=== PATIENT | female | born 1955 | race Caucasian/White ===

== ENCOUNTER 2019-02-18 18:19 | Emergency (ER) | payer BC ==
[2019-02-18] MEDS ORDERED: Aspirin 81 MG Tab.EC PO ONE (18:38)
[2019-02-18] MEDS ORDERED: Aspirin 81 MG Tab.Chew PO ONE ×2 (18:38→19:04)
--- NOTE | 2019-02-18 18:46 | EDM.PDOC ---
ED HPI GENERAL MEDICAL PROBLEM - General Stated Complaint: CHEST PRESSURE Time Seen by Provider: 02/18/19 18:19 Source of Information: Reports: Patient, Family History Limitations: Reports: No Limitations - History of Present Illness INITIAL COMMENTS - FREE TEXT/NARRATIVE: 63 y.o.w.f with CAD risk factors-hypercholesterolemia, HTN and NIDDM, came to [facility] ed because of mid upper chest pain since 8 am. Pt had similar episodes in the disant past. At the time, the pain subsided after she took a Prilosec. However, this morning the pain did not subside, which prompted her to come to the ED this PM. As she arrived in the ED her CP was rated 2/10, non radiating, SS mid upper chest. She took ASA 81 mg this am. She received another 3X 81 mg of ASA. in the ED. Her CP subsided spontaneously before any lab tests were done. her ECG showed NS without any acute ST/T wave changes. Pt did not have excessive sweating, no Dizziness or lightheadedness. No N/V or any other acute medical issues. 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, NSAIDS Midsternal chest, throat & bilat ears Pain Score (Numeric/FACES): 4 - Related Data Allergies Allergy/AdvReac Type Severity Reaction Status Date / Time Penicillins Allergy Unknown UNKNOWN Verified 02/18/19 18:46 Home Meds: Home Meds Acetaminophen [Non-Aspirin Extra Strength] 500 mg PO ASDIRECTED PRN 09/29/14 [ History] Aspirin [Adult Low Dose Aspirin EC] 81 mg PO DAILY 09/29/14 [History] Calcium Carbonate/Vitamin D3 [Calcium 600 + Vit D 400] 1 each PO DAILY 09/29/14 [History] Lisinopril/Hydrochlorothiazide [Lisinopril-Hctz 10-12.5 mg Tab] 10 - 12.5 mg PO DAILY 09/29/14 [History] Omeprazole Magnesium [Prilosec Otc] 20 mg PO DAILY PRN 09/29/14 [History] Simvastatin [Zocor] 20 mg PO BEDTIME 09/29/14 [History] metFORMIN [Glucophage] 500 mg PO BID 11/04/14 [History] Glimepiride [Amaryl] 2 mg PO WITHBREAKFAST 02/18/19 [History] Gluc HCl/Csa/Dyan Hy/Hyalur Ac [Glucosamine Chondroitin] 1 each PO DAILY [History] Liraglutide [Victoza 3-Reg] 1.8 mg SQ DAILY 02/18/19 [History] Multivitamin [Multivitamins] 2 each PO DAILY 02/18/19 [History] atorvaSTATin Calcium [Atorvastatin Calcium] 40 mg DAILY 02/18/19 [History] metFORMIN HCl [Metformin HCl ER] 1,000 mg BEDTIME 02/18/19 [History] ED ROS GENERAL - Review of Systems Review Of Systems: See Below Constitutional: Reports: No Symptoms HEENT: Reports: No Symptoms Respiratory: Reports: No Symptoms Cardiovascular: Reports: Chest Pain Endocrine: Reports: No Symptoms GI/Abdominal: Reports: No Symptoms : Reports: No Symptoms Musculoskeletal: Reports: No Symptoms Skin: Reports: No Symptoms Neurological: Reports: No Symptoms Psychiatric: Reports: No Symptoms Hematologic/Lymphatic: Reports: No Symptoms Immunologic: Reports: No Symptoms ED EXAM, GENERAL - Physical Exam Exam: See Below Exam Limited By: No Limitations General Appearance: Alert, WD/WN, Mild Distress Eye Exam: Bilateral Eye: Normal Inspection Ears: Normal External Exam Ear Exam: Bilateral Ear: Auricle Normal Nose: Normal Inspection, Normal Mucosa, No Blood Throat/Mouth: Normal Inspection, Normal Lips, Normal Voice, No Airway Compromise Head: Atraumatic, Normocephalic Neck: Normal Inspection, Supple, Non-Tender, Full Range of Motion Respiratory/Chest: No Respiratory Distress, Lungs Clear, Normal Breath Sounds, No Accessory Muscle Use, Chest Non-Tender Cardiovascular: Normal Peripheral Pulses, Regular Rate, Rhythm, No Edema, No Gallop, No JVD, No Murmur, No Rub Peripheral Pulses: 2+: Brachial (R) GI/Abdominal: Normal Bowel Sounds, Soft, Non-Tender, No Organomegaly, No Distention, No Abnormal Bruit, No Mass, Pelvis Stable (Female) Exam: Deferred Rectal (Female) Exam: Deferred Back Exam: Normal Inspection Extremities: Normal Inspection Neurological: Alert, Oriented, CN II-XII Intact, Normal Cognition, Normal Gait, Normal Reflexes, No Motor/Sensory Deficits Psychiatric: Normal Affect, Normal Mood Skin Exam: Warm, Dry, Intact, Normal Color, No Rash Lymphatic: No Adenopathy EKG INTERPRETATION EKG Date: 02/18/19 Time: 18:40 Rhythm: NSR Rate (Beats/Min): 82 [place]: Normal P-Wave: Present QRS: Normal ST-T: Normal QT: Normal Comparison: NA - No Prior EKG Course - Vital Signs Text/Narrative:: 63 y.o.w.f with CAD risk factors-hypercholesterolemia, HTN and NIDDM, came to [facility] ed because of mid upper chest pain since 8 am. Pt had similar episodes in the disant past. At the time, the pain subsided after she took a Prilosec. However, this morning the pain did not subside, which prompted her to come to the ED this PM. As she arrived in the ED her CP was rated 2/10, non radiating, SS mid upper chest. She took ASA 81 mg this am. She received another 3X 81 mg of ASA. in the ED. Her CP subsided spontaneously before any lab tests were done. her ECG showed NS without any acute ST/T wave changes. Pt did not have excessive sweating, no Dizziness or lightheadedness. No N/V or any other acute medical issues. BP 12/62 RR 20 Pulse ox 98% on RA Temp 36.8 HR 88 PE: WNWD W F with mid upper cp when moving, not at rest Imaging: CXR: NAD Labs: Troponin 0.017 CBC nl D DImer 0.49 BMP nl except BUN 22 CR 1.1 GFR 50 Impression: Atypical chest pain Tx: ASA, Protonix, NTG Reexam: Pt was pain free at rest but had pain with at her mid upper chest (2/10 ) when she moved from the chair back to the bed. Troponin and ECG were repeated. Troponin was 0.017 her ECG showed now a T Wave inversion at lead V1 9.[address] Wang, central office supervisor at , was comparing the first and 2nd EKG ant advised me the the V1 T wave inversion is a nl variant. He recommended the pt to have a cardiac stress test before leaving the ED and would recommend to transfer the pt to [facility] and perform a Stress test in am. If pt refused, she should be at least to be scheduled to have the test done in am. Reexam: Pt decided to F/U in am with her PMD to be scheduled for a Cardiac stress test at [facility] in am. She refused to be admitted to acute care for obs because all tests were neg. She was aware of the risks. Plan: D/C with instructions Call in am: Pt was doing fine, has called Dr. Leiva's office. Last Recorded V/S: Last Vital Signs Temp 36.7 C 02/18/19 21:30 Pulse 81 02/18/19 21:30 Resp 17 02/18/19 21:30 BP 120/58 L 02/18/19 21:30 Pulse Ox 98 02/18/19 21:30 - Orders/Labs/Meds Orders: Active Orders 24 hr Category Date Time Status EKG Documentation Completion [RC] ASDIRECTED Care 02/18/19 18:38 Active EKG Documentation Completion [RC] ASDIRECTED Care 02/18/19 21:10 Active Chest 2V [CR] Stat Exams 02/18/19 18:37 Taken Peripheral IV Insertion Adult [OM.PC] Routine Oth 02/18/19 19:28 Ordered EKG 12 Lead [EK] Routine Ther 02/18/19 18:37 Ordered EKG 12 Lead [EK] Routine Ther 02/18/19 21:09 Ordered Labs: Laboratory Tests 02/18/19 02/18/19 02/18/19 Range/Units 18:40 18:40 18:40 WBC 6.8 (4.5-12.0) X10-3/uL RBC 4.44 (3.23-5.20) x10(6)uL Hgb 12.4 (11.5-15.5) g/dL Hct 37.4 (30.0-51.3) % MCV 84.4 (80-96) fL MCH 27.9 (27.7-33.6) pg MCHC 33.0 (32.2-35.4) g/dL RDW 13.7 (11.5-15.5) % Plt Count 244 (125-369) X10(3)uL MPV 8.3 (7.4-10.4) fL Neut % (Auto) 61.5 (46-82) % Lymph % (Auto) 30.2 (13-37) % [place] % (Auto) 5.4 (4-12) % Eos % (Auto) 3 (1.0-5.0) % Baso % (Auto) 0 (0-2) % Neut # (Auto) 4.2 (1.6-8.3) # Lymph # (Auto) 2.0 (0.6-5.0) # [place] # (Auto) 0.4 (0.0-1.3) # Eos # (Auto) 0.2 (0.0-0.8) # Baso # (Auto) 0.0 (0.0-0.2) # PT 9.3 (8.7-11.1) INR 0.96 (0.89-1.13) D-Dimer, Quantitative (0.0-0.59) mg/LFEU Sodium 141 (135-145) mmol/L Potassium 4.0 (3.5-5.3) mmol/L Chloride 104 (100-110) mmol/L Carbon Dioxide 27 (21-32) mmol/L BUN 22 H (7-18) mg/dL Creatinine 1.1 H (0.55-1.02) mg/dL Est Cr Clr Drug Dosing 40.86 mL/min Estimated GFR (MDRD) 50 L (>60) BUN/Creatinine Ratio 20.0 (9-20) Glucose 159 H (80-116) mg/dL Calcium 9.1 (8.6-10.2) mg/dL Troponin I (<0.017-0.056) ng/mL 02/18/19 02/18/19 02/18/19 Range/Units 18:40 18:40 21:25 WBC (4.5-12.0) X10-3/uL RBC (3.23-5.20) x10(6)uL Hgb (11.5-15.5) g/dL Hct (30.0-51.3) % MCV (80-96) fL MCH (27.7-33.6) pg MCHC (32.2-35.4) g/dL RDW (11.5-15.5) % Plt Count (125-369) X10(3)uL MPV (7.4-10.4) fL Neut % (Auto) (46-82) % Lymph % (Auto) (13-37) % [place] % (Auto) (4-12) % Eos % (Auto) (1.0-5.0) % Baso % (Auto) (0-2) % Neut # (Auto) (1.6-8.3) # Lymph # (Auto) (0.6-5.0) # [place] # (Auto) (0.0-1.3) # Eos # (Auto) (0.0-0.8) # Baso # (Auto) (0.0-0.2) # PT (8.7-11.1) INR (0.89-1.13) D-Dimer, Quantitative 0.42 (0.0-0.59) mg/LFEU Sodium (135-145) mmol/L Potassium (3.5-5.3) mmol/L Chloride (100-110) mmol/L Carbon Dioxide (21-32) mmol/L BUN (7-18) mg/dL Creatinine (0.55-1.02) mg/dL Est Cr Clr Drug Dosing mL/min Estimated GFR (MDRD) (>60) BUN/Creatinine Ratio (9-20) Glucose (80-116) mg/dL Calcium (8.6-10.2) mg/dL Troponin I < 0.017 L < 0.017 L (<0.017-0.056) ng/mL Meds: Medications Discontinued Medications Generic Name Dose Route Start Last Admin Trade Name Freq PRN Reason Stop Dose Admin Aspirin 81 mg 02/18/19 18:38 02/18/19 19:03 Aspirin PO 02/18/19 18:39 Not Given ONETIME ONE Aspirin 162 mg 02/18/19 18:38 02/18/19 19:03 Halfprin PO 02/18/19 18:39 Not Given ONETIME ONE Aspirin 243 mg 02/18/19 19:04 02/18/19 18:40 Aspirin PO 02/18/19 19:05 243 mg ONETIME ONE Administration Nitroglycerin 1 gm 02/18/19 19:15 02/18/19 19:26 Nitro-Bid 2% TOP 02/18/19 19:16 1 gm ONETIME ONE Administration Sodium Chloride 10 ml 02/18/19 19:27 02/18/19 19:25 Saline Flush FLUSH 10 ml ASDIRECTED PRN Administration Keep Vein Open Departure - Departure Time of Disposition: 20:57 Disposition: Home, Self-Care 01 Condition: Good Clinical Impression: Atypical chest pain Instructions: Nonspecific Chest Pain, [id number] Referrals: Jose Leiva MD [Primary Care Provider] - Forms: ED Department Discharge Additional Instructions: Please cont your meds, please f/u with your PMD in am. please come back if your symptoms get worse acutely. - My Orders Last 24 Hours: My Active Orders 02/18/19 18:37 Chest 2V [CR] Stat EKG 12 Lead [EK] Routine 02/18/19 18:38 EKG Documentation Completion [RC] ASDIRECTED 02/18/19 19:28 Peripheral IV Insertion Adult [OM.PC] Routine 02/18/19 21:09 EKG 12 Lead [EK] Routine 02/18/19 21:10 EKG Documentation Completion [RC] ASDIRECTED - Assessment/Plan Last 24 Hours: My Active Orders 02/18/19 18:37 Chest 2V [CR] Stat EKG 12 Lead [EK] Routine 02/18/19 18:38 EKG Documentation Completion [RC] ASDIRECTED 02/18/19 19:28 Peripheral IV Insertion Adult [OM.PC] Routine 02/18/19 21:09 EKG 12 Lead [EK] Routine 02/18/19 21:10 EKG Documentation Completion [RC] ASDIRECTED
[2019-02-18] MEDS ORDERED: Nitroglycerin 2% Oint 1 GM UD Packet TOP ONE (19:15)
[2019-02-18] MEDS ORDERED: Sodium Chloride 0.9% 10 ML Syringe FLUSH PRN (19:27)
[2019-02-19 01:58] VITALS: BP 120/58
== END 2019-02-18 21:59 | disposition home or self-care (01) ==
LOC: FB.ED 18:19
DX: R07.89 Other chest pain (principal); E78.00 Pure hypercholesterolemia, unspecified; I10 Essential (primary) hypertension; E11.9 Type 2 diabetes mellitus without complications; Z88.0 Allergy status to penicillin; Z79.82 Long term (current) use of aspirin; Z79.899 Other long term (current) drug therapy; Z79.84 Long term (current) use of oral hypoglycemic drugs
CPT/HCPCS: 36415; 71046; 80048; 84484; 85025; 85379; 85610; 93005; 99285; A9270

== ENCOUNTER 2019-03-12 17:33 | Emergency (ER) | payer BC ==
[2019-03-12] MEDS ORDERED: Aspirin 81 MG Tab.Chew PO ONE ×3 (17:46→17:47)
--- NOTE | 2019-03-12 17:50 | EDM.PDOC ---
ED HPI GENERAL MEDICAL PROBLEM - General Chief Complaint: Chest Pain Stated Complaint: CHEST PRESSURE Time Seen by Provider: 03/12/19 17:33 Source of Information: Reports: Patient, Family () History Limitations: Reports: No Limitations - History of Present Illness INITIAL COMMENTS - FREE TEXT/NARRATIVE: 63 y.o.w.f with a H/O CAD, S/P stent placement in her LAD last week at [facility], came to the ED with her due to pain at her upper chest, nonradiating, worse when taking a deep breath. 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 (81 mg) Chest Pain Score (Numeric/FACES): 2 - Related Data Allergies Allergy/AdvReac Type Severity Reaction Status Date / Time Penicillins Allergy Unknown UNKNOWN Verified 03/12/19 17:42 Home Meds: Home Meds Aspirin [Adult Low Dose Aspirin EC] 81 mg PO DAILY 09/29/14 [History] Calcium Carbonate/Vitamin D3 [Calcium 600 + Vit D 400] 1 each PO DAILY 09/29/14 [History] Lisinopril/Hydrochlorothiazide [Lisinopril-Hctz 10-12.5 mg Tab] 10 - 12.5 mg PO DAILY 09/29/14 [History] metFORMIN [Glucophage] 500 mg PO BID 11/04/14 [History] Gluc HCl/Csa/Dyan Hy/Hyalur Ac [Glucosamine Chondroitin] 1 each PO DAILY [History] Liraglutide [Victoza 3-Reg] 1.8 mg SQ DAILY 02/18/19 [History] Multivitamin [Multivitamins] 2 each PO DAILY 02/18/19 [History] atorvaSTATin Calcium [Atorvastatin Calcium] 40 mg PO DAILY 02/18/19 [History] metFORMIN HCl [Metformin HCl ER] 1,000 mg PO BEDTIME 02/18/19 [History] Clopidogrel Bisulfate [Clopidogrel] 75 mg PO DAILY 03/12/19 [History] Pantoprazole Sodium 40 mg PO DAILY 03/12/19 [History] Past Medical History Cardiovascular History: Reports: High Cholesterol, Hypertension, Stents Gastrointestinal History: Reports: GERD Genitourinary History: Reports: None GOLF PROFESSIONAL History: Reports: Other GOLF PROFESSIONAL History: Musculoskeletal History: Reports: Arthritis, Fracture Other Musculoskeletal History: hx fx L elbow Psychiatric History: Reports: Anxiety, Depression Endocrine/Metabolic History: Reports: Diabetes, Type II, Obesity/BMI 30+ - Infectious Disease History Infectious Disease History: Reports: Chicken Pox, Mumps - Past Surgical History Cardiovascular Surgical History: Reports: Other (See Below) Other Cardiovascular Surgeries/Procedures: Patient reports she had stent placement d/t 70% blockage of LAD. GI Surgical History: Reports: Appendectomy, Colonoscopy Female Surgical History: Reports: Section Musculoskeletal Surgical History: Reports: None Social & Family History - Family History Family Medical History: Noncontributory - Caffeine Use Caffeine Use: Reports: Coffee, Tea ED ROS GENERAL - Review of Systems Review Of Systems: See Below Constitutional: Reports: No Symptoms HEENT: Reports: No Symptoms Respiratory: Reports: No Symptoms Cardiovascular: Reports: Chest Pain Endocrine: Reports: No Symptoms GI/Abdominal: Reports: No Symptoms : Reports: No Symptoms Musculoskeletal: Reports: No Symptoms Skin: Reports: No Symptoms Neurological: Reports: No Symptoms Psychiatric: Reports: No Symptoms Hematologic/Lymphatic: Reports: No Symptoms Immunologic: Reports: No Symptoms ED EXAM, GENERAL - Physical Exam Exam: See Below Exam Limited By: No Limitations General Appearance: Alert, WD/WN, Mild Distress, Obese Eye Exam: Bilateral Eye: Normal Inspection Ears: Normal External Exam Ear Exam: Bilateral Ear: Auricle Normal Nose: Normal Inspection, Normal Mucosa, No Blood Throat/Mouth: Normal Inspection, Normal Lips, Normal Voice, No Airway Compromise Head: Atraumatic, Normocephalic Neck: Normal Inspection, Supple, Non-Tender, Full Range of Motion Respiratory/Chest: No Respiratory Distress, Lungs Clear, Normal Breath Sounds, No Accessory Muscle Use, Chest Non-Tender Cardiovascular: Normal Peripheral Pulses, Regular Rate, Rhythm, No Edema, No Gallop, No JVD, No Murmur, No Rub Peripheral Pulses: 1+: Brachial (R) GI/Abdominal: Normal Bowel Sounds, Soft, Non-Tender, No Organomegaly, No Distention, No Abnormal Bruit, No Mass, Pelvis Stable (Female) Exam: Deferred Rectal (Female) Exam: Deferred Back Exam: Normal Inspection, Full Range of Motion Extremities: Normal Inspection, Normal Range of Motion, Non-Tender, No Pedal Edema, Normal Capillary Refill Neurological: Alert, Oriented, CN II-XII Intact, Normal Cognition, Normal Gait Psychiatric: Normal Affect, Normal Mood Skin Exam: Warm, Dry, Intact, Normal Color, No Rash Lymphatic: No Adenopathy EKG INTERPRETATION EKG Date: 03/12/19 Time: 17:55 Rhythm: NSR Rate (Beats/Min): 66 [place]: Normal P-Wave: Present QRS: Normal ST-T: Other (T wave inversion on Lead V1, Old) QT: Normal Comparison: No Change Course - Vital Signs Text/Narrative:: 63 y.o.w.f with a H/O CAD, NIDDM, S/P stent placement in her LAD last week at [facility], came to the ED with her due to pain at her upper chest, nonradiating, worse when taking a deep breath. This pain is different form BP 124/90 RR 19 Pulse ox 100% on RA pulse 67 Temp 36.4 PE: WNWD W F with pleuritic CP, pt is not on Coumadin Imaging: Not indicated Labs: CBC, BMP, Troponin and Dimer were nl except GFR was 56 and her BUN was 24 Impression: Atypical CP Tx: ASA 81 mg X 3. Reexam: Pain subsided immediately after ASA was given, pt was stable while here in the ED Plan: D/C with instructions Last Recorded V/S: Last Vital Signs Temp 36.4 C 03/12/19 17:35 Pulse 65 03/12/19 18:30 Resp 16 03/12/19 18:30 BP 114/55 L 03/12/19 18:30 Pulse Ox 97 03/12/19 18:30 - Orders/Labs/Meds Orders: Active Orders 24 hr Category Date Time Status EKG Documentation Completion [RC] ASDIRECTED Care 03/12/19 17:51 Active EKG 12 Lead [EK] Routine Ther 03/12/19 17:51 Ordered Labs: Laboratory Tests 03/12/19 03/12/19 03/12/19 Range/Units 17:58 17:58 17:58 WBC 6.0 (4.5-12.0) X10-3/uL RBC 4.36 (3.23-5.20) x10(6)uL Hgb 12.3 (11.5-15.5) g/dL Hct 36.5 (30.0-51.3) % MCV 83.7 (80-96) fL MCH 28.2 (27.7-33.6) pg MCHC 33.7 (32.2-35.4) g/dL RDW 13.6 (11.5-15.5) % Plt Count 227 (125-369) X10(3)uL MPV 8.0 (7.4-10.4) fL Neut % (Auto) 61.7 (46-82) % Lymph % (Auto) 28.7 (13-37) % [place] % (Auto) 6.2 (4-12) % Eos % (Auto) 3 (1.0-5.0) % Baso % (Auto) 0 (0-2) % Neut # (Auto) 3.7 (1.6-8.3) # Lymph # (Auto) 1.7 (0.6-5.0) # [place] # (Auto) 0.4 (0.0-1.3) # Eos # (Auto) 0.2 (0.0-0.8) # Baso # (Auto) 0.0 (0.0-0.2) # D-Dimer, Quantitative 0.59 (0.0-0.59) mg/LFEU Sodium 136 (135-145) mmol/L Potassium 3.8 (3.5-5.3) mmol/L Chloride 102 (100-110) mmol/L Carbon Dioxide 25 (21-32) mmol/L BUN 24 H (7-18) mg/dL Creatinine 1.0 (0.55-1.02) mg/dL Est Cr Clr Drug Dosing 44.95 mL/min Estimated GFR (MDRD) 56 L (>60) BUN/Creatinine Ratio 24.0 H (9-20) Glucose 231 H (80-116) mg/dL Calcium 9.3 (8.6-10.2) mg/dL Troponin I (<0.017-0.056) ng/mL 03/12/19 Range/Units 17:58 WBC (4.5-12.0) X10-3/uL RBC (3.23-5.20) x10(6)uL Hgb (11.5-15.5) g/dL Hct (30.0-51.3) % MCV (80-96) fL MCH (27.7-33.6) pg MCHC (32.2-35.4) g/dL RDW (11.5-15.5) % Plt Count (125-369) X10(3)uL MPV (7.4-10.4) fL Neut % (Auto) (46-82) % Lymph % (Auto) (13-37) % [place] % (Auto) (4-12) % Eos % (Auto) (1.0-5.0) % Baso % (Auto) (0-2) % Neut # (Auto) (1.6-8.3) # Lymph # (Auto) (0.6-5.0) # [place] # (Auto) (0.0-1.3) # Eos # (Auto) (0.0-0.8) # Baso # (Auto) (0.0-0.2) # D-Dimer, Quantitative (0.0-0.59) mg/LFEU Sodium (135-145) mmol/L Potassium (3.5-5.3) mmol/L Chloride (100-110) mmol/L Carbon Dioxide (21-32) mmol/L BUN (7-18) mg/dL Creatinine (0.55-1.02) mg/dL Est Cr Clr Drug Dosing mL/min Estimated GFR (MDRD) (>60) BUN/Creatinine Ratio (9-20) Glucose (80-116) mg/dL Calcium (8.6-10.2) mg/dL Troponin I 0.021 (<0.017-0.056) ng/mL Meds: Medications Discontinued Medications Generic Name Dose Route Start Last Admin Trade Name Freq PRN Reason Stop Dose Admin Aspirin 81 mg 03/12/19 17:46 03/12/19 17:48 Aspirin PO 03/12/19 17:47 81 mg ONETIME ONE Administration Aspirin 81 mg 03/12/19 17:47 03/12/19 17:48 Aspirin PO 03/12/19 17:48 81 mg ONETIME ONE Administration Aspirin 81 mg 03/12/19 17:47 03/12/19 17:48 Aspirin PO 03/12/19 17:48 81 mg ONETIME ONE Administration Departure - Departure Time of Disposition: 18:40 Disposition: Home, Self-Care 01 Condition: Good Clinical Impression: Atypical chest pain Instructions: Nonspecific Chest Pain, [id number] Referrals: Jose Leiva MD [Primary Care Provider] - Forms: ED Department Discharge Additional Instructions: Please continue your current meds, F/U, come back if your symptoms get worse acutely - My Orders Last 24 Hours: My Active Orders 03/12/19 17:51 EKG Documentation Completion [RC] ASDIRECTED EKG 12 Lead [EK] Routine - Assessment/Plan Last 24 Hours: My Active Orders 03/12/19 17:51 EKG Documentation Completion [RC] ASDIRECTED EKG 12 Lead [EK] Routine
[2019-03-12 18:57] VITALS: BP 114/55
== END 2019-03-12 18:48 | disposition home or self-care (01) ==
LOC: FB.ED 17:33
DX: R07.89 Other chest pain (principal); I25.10 Atherosclerotic heart disease of native coronary artery without angina pectoris; E78.00 Pure hypercholesterolemia, unspecified; I10 Essential (primary) hypertension; Z95.5 Presence of coronary angioplasty implant and graft; F41.9 Anxiety disorder, unspecified; F32.9 Major depressive disorder, single episode, unspecified; E11.9 Type 2 diabetes mellitus without complications; Z88.0 Allergy status to penicillin; Z79.899 Other long term (current) drug therapy; Z79.82 Long term (current) use of aspirin; Z79.84 Long term (current) use of oral hypoglycemic drugs
CPT/HCPCS: 36415; 80048; 84484; 85025; 85379; 93005; 99285-25; A9270-GY

== ENCOUNTER 2020-06-02 15:27 | Emergency (ER) | payer MEDICARE, BC, OTHER ==
[2020-06-02] MEDS ORDERED: Sodium Chloride 0.9% 1,000 ML IV ONE (15:49)
[2020-06-02] MEDS ORDERED: Ketorolac 30 MG/ML SDV IVPUSH ONE (15:49)
[2020-06-02] MEDS ORDERED: Sodium Chloride 0.9% 10 ML Syringe FLUSH PRN (16:05)
--- NOTE | 2020-06-02 17:01 | EDM.PDOC ---
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 has slight pain and back of neck, no ST, denies pain elsewhere pt called clinic who requested that pt come her for COVID testing Neck Pain Score (Numeric/FACES): 3 - Related Data Allergies Allergy/AdvReac Type Severity Reaction Status Date / Time Penicillins Allergy Unknown UNKNOWN Verified 03/12/19 17:42 lisinopril Allergy Facial Verified 06/02/20 15:47 Swelling Home Meds: Home Meds Aspirin [Adult Low Dose Aspirin EC] 81 mg PO DAILY 09/29/14 [History] Calcium Carbonate/Vitamin D3 [Calcium 600 + Vit D 400] 1 each PO BID 09/29/14 [History] metFORMIN [Glucophage] 500 mg PO BID 11/04/14 [History] Glucosam/Chond/Collagen/Hyalur [Glucosamine Chondroitin] 1 each PO DAILY 02/18/19 [History] atorvaSTATin Calcium [Atorvastatin Calcium] 20 mg PO DAILY 02/18/19 [History] metFORMIN HCl [Metformin HCl ER] 1,000 mg PO BEDTIME 02/18/19 [History] Clopidogrel Bisulfate [Clopidogrel] 75 mg PO DAILY 03/12/19 [History] Ciprofloxacin HCl [Cipro] 500 mg PO BID #14 tablet 06/02/20 [Rx] Dulaglutide [Trulicity] 1.5 mg INJECT MO 06/02/20 [History] Empagliflozin [Jardiance] 25 mg PO DAILY 06/02/20 [History] predniSONE 20 mg PO WITHBREAKFAST #7 tab 06/02/20 [Rx] Past Medical History Cardiovascular History: Reports: High Cholesterol, Hypertension, Stents Gastrointestinal History: Reports: GERD Genitourinary History: Reports: None SHANK THREADER History: Reports: Other SHANK THREADER History: Musculoskeletal History: Reports: Arthritis, Fracture Other Musculoskeletal History: hx fx L elbow Psychiatric History: Reports: Anxiety, Depression Endocrine/Metabolic History: Reports: Diabetes, Type II, Obesity/BMI 30+ - Infectious Disease History Infectious Disease History: Reports: Chicken Pox, Mumps - Past Surgical History Cardiovascular Surgical History: Reports: Other (See Below) Other Cardiovascular Surgeries/Procedures: Patient reports she had stent placement d/t 70% blockage of LAD. GI Surgical History: Reports: Appendectomy, Colonoscopy Female Surgical History: Reports: Section Musculoskeletal Surgical History: Reports: None Social & Family History - Family History Family Medical History: Noncontributory - Tobacco Use Smoking Status *Q: Never Smoker - Caffeine Use Caffeine Use: Reports: Tea - Recreational Drug Use Recreational Drug Use: No ED ROS GENERAL - Review of Systems Review Of Systems: See Below Constitutional: Reports: Fever, Chills, Malaise HEENT: Reports: No Symptoms Respiratory: Reports: No Symptoms. Denies: Shortness of Breath Cardiovascular: Reports: No Symptoms. Denies: Chest Pain Endocrine: Reports: No Symptoms GI/Abdominal: Reports: No Symptoms. Denies: Abdominal Pain : Reports: No Symptoms Musculoskeletal: Reports: No Symptoms Skin: Reports: No Symptoms Neurological: Reports: No Symptoms Psychiatric: Reports: No Symptoms Hematologic/Lymphatic: Reports: No Symptoms Immunologic: Reports: No Symptoms ED EXAM, GENERAL - Physical Exam Exam: See Below Exam Limited By: No Limitations General Appearance: Alert, WD/WN, No Apparent Distress, Other (pleasant, sitting in chair) Course - Vital Signs Last Recorded V/S: Last Vital Signs Temp 36.9 C 06/02/20 15:35 Pulse 89 06/02/20 15:35 Resp 18 06/02/20 15:35 BP 123/86 06/02/20 15:35 Pulse Ox 96 06/02/20 15:35 - Orders/Labs/Meds Orders: Active Orders 24 hr Category Date Time Status Orthostatic Vital Signs [RC] ASDIRECTED Care 06/02/20 18:41 Ordered CULTURE BLOOD [BC] Urgent Lab 06/02/20 16:12 Received CULTURE BLOOD [BC] Urgent Lab 06/02/20 16:18 Received Sodium Chloride 0.9% [Saline Flush] Med 06/02/20 16:05 Active 10 ml FLUSH ASDIRECTED PRN cefTRIAXone [Rocephin] Med 06/02/20 19:09 Once 1 gm IVPUSH ONETIME ONE methylPREDNISolone Sod Succ [Solu-MEDROL] Med 06/02/20 19:10 Once 80 mg IVPUSH ONETIME ONE Blood Culture x2 Reflex Set [OM.PC] Urgent Oth 06/02/20 15:51 Ordered Medication Orders Ceftriaxone Sodium (Rocephin) 1 gm IVPUSH ONETIME ONE Stop: 06/02/20 19:10 Sodium Chloride (Saline Flush) 10 ml FLUSH ASDIRECTED PRN PRN Reason: IV Use Last Admin: 06/02/20 16:05 Dose: 10 ml Documented by: KWASI Labs: Laboratory Tests 06/02/20 06/02/20 06/02/20 Range/Units 16:12 16:12 16:12 WBC 5.5 (4.5-12.0) X10-3/uL RBC 4.99 (3.23-5.20) x10(6)uL Hgb 12.9 (11.5-15.5) g/dL Hct 41.3 (30.0-51.3) % MCV 82.7 (80-96) fL MCH 25.8 L (27.7-33.6) pg MCHC 31.2 L (32.2-35.4) g/dL RDW 14.2 (11.5-15.5) % Plt Count 221 (125-369) X10(3)uL MPV 7.7 (7.4-10.4) fL Add Manual Diff Yes Neutrophils % (Manual) 76 (46-82) % Band Neutrophils % 2 (0-6) % Lymphocytes % (Manual) 15 (13-37) % Monocytes % (Manual) 6 (4-12) % Eosinophils % (Manual) 1 (0-5) % Sodium 139 (135-145) mmol/L Potassium 3.6 (3.5-5.3) mmol/L Chloride 103 (100-110) mmol/L Carbon Dioxide 26 (21-32) mmol/L BUN 24 H (7-18) mg/dL Creatinine 1.2 H (0.55-1.02) mg/dL Est Cr Clr Drug Dosing 36.12 mL/min Estimated GFR (MDRD) 45 L (>60) BUN/Creatinine Ratio 20.0 (9-20) Glucose 187 H (80-116) mg/dL Lactic Acid 1.3 (0.4-2.0) mmol/L Calcium 9.6 (8.6-10.2) mg/dL Total Bilirubin 0.6 (0.1-1.3) mg/dL AST 17 (5-25) IU/L ALT 27 (12-36) U/L Alkaline Phosphatase 112 (56-112) IU/L C-Reactive Protein (0.5-0.9) mg/dL Total Protein 6.9 (6.0-8.0) g/dL Albumin 3.8 (3.2-4.6) g/dL Globulin 3.1 g/dL Albumin/Globulin Ratio 1.2 Urine Color (YELLOW) Urine Appearance (CLEAR) Urine pH (5.0-6.5) Ur Specific Delta (1.010-1.025) Urine Protein (NEGATIVE) mg/dL Urine Glucose (UA) (NORMAL) mg/dL Urine Ketones (NEGATIVE) mg/dL Urine Occult Blood (NEGATIVE) Urine Nitrite (NEGATIVE) Urine Bilirubin (NEGATIVE) Urine Urobilinogen (NEGATIVE) mg/dL Ur Leukocyte Esterase (NEGATIVE) Urine RBC (0-5) Urine WBC (0-5) Ur Squamous Epith Cells (NS,R,O) Urine Bacteria (NS) SARS Virus RNA (PCR) (NEGATIVE) 06/02/20 06/02/20 06/02/20 Range/Units 16:12 16:20 17:45 WBC (4.5-12.0) X10-3/uL RBC (3.23-5.20) x10(6)uL Hgb (11.5-15.5) g/dL Hct (30.0-51.3) % MCV (80-96) fL MCH (27.7-33.6) pg MCHC (32.2-35.4) g/dL RDW (11.5-15.5) % Plt Count (125-369) X10(3)uL MPV (7.4-10.4) fL Add Manual Diff Neutrophils % (Manual) (46-82) % Band Neutrophils % (0-6) % Lymphocytes % (Manual) (13-37) % Monocytes % (Manual) (4-12) % Eosinophils % (Manual) (0-5) % Sodium (135-145) mmol/L Potassium (3.5-5.3) mmol/L Chloride (100-110) mmol/L Carbon Dioxide (21-32) mmol/L BUN (7-18) mg/dL Creatinine (0.55-1.02) mg/dL Est Cr Clr Drug Dosing mL/min Estimated GFR (MDRD) (>60) BUN/Creatinine Ratio (9-20) Glucose (80-116) mg/dL Lactic Acid (0.4-2.0) mmol/L Calcium (8.6-10.2) mg/dL Total Bilirubin (0.1-1.3) mg/dL AST (5-25) IU/L ALT (12-36) U/L Alkaline Phosphatase (56-112) IU/L C-Reactive Protein 3.9 H* (0.5-0.9) mg/dL Total Protein (6.0-8.0) g/dL Albumin (3.2-4.6) g/dL Globulin g/dL Albumin/Globulin Ratio Urine Color Yellow (YELLOW) Urine Appearance Slightly cloudy (CLEAR) Urine pH 5.0 (5.0-6.5) Ur Specific Delta 1.015 (1.010-1.025) Urine Protein Negative (NEGATIVE) mg/dL Urine Glucose (UA) >1000 H (NORMAL) mg/dL Urine Ketones Negative (NEGATIVE) mg/dL Urine Occult Blood Moderate H (NEGATIVE) Urine Nitrite Negative (NEGATIVE) Urine Bilirubin Negative (NEGATIVE) Urine Urobilinogen Normal (NEGATIVE) mg/dL Ur Leukocyte Esterase Negative (NEGATIVE) Urine RBC 0-5 (0-5) Urine WBC 0-5 (0-5) Ur Squamous Epith Cells Few H (NS,R,O) Urine Bacteria Few H (NS) SARS Virus RNA (PCR) Negative (NEGATIVE) Meds: Medications Generic Name Dose Route Start Last Admin Trade Name Freq PRN Reason Stop Dose Admin Ceftriaxone Sodium 1 gm 06/02/20 19:09 Rocephin IVPUSH 06/02/20 19:10 ONETIME ONE Sodium Chloride 10 ml 06/02/20 16:05 06/02/20 16:05 Saline Flush FLUSH 10 ml ASDIRECTED PRN Administration IV Use Discontinued Medications Generic Name Dose Route Start Last Admin Trade Name Freq PRN Reason Stop Dose Admin Sodium Chloride 1,000 mls @ 999 mls/hr 06/02/20 15:49 06/02/20 16:08 Normal Saline IV 06/02/20 16:49 999 mls/hr .BOLUS ONE Administration Ketorolac Tromethamine 30 mg 06/02/20 15:49 06/02/20 16:08 Toradol IVPUSH 06/02/20 15:50 30 mg ONETIME ONE Administration - Re-Assessments/Exams Free Text/Narrative Re-Assessment/Exam: 06/02/20 19:20 pt has had no meningeal signs, does not appear ill cause of her symptoms are unclear will give ceftriaxone IV x 1 and cipro 500 mg bid x 7d pt with h/o some type of allergy to PCN 37 yo ago during childbirth pt doing well, eager to leave, understands instructions Departure - Departure Time of Disposition: 19:11 Disposition: Home, Self-Care 01 Condition: Good Clinical Impression: Fever, Chills, Elevated C-reactive protein - Discharge Information *PRESCRIPTION DRUG MONITORING PROGRAM REVIEWED*: Not Applicable *COPY OF PRESCRIPTION DRUG MONITORING REPORT IN PATIENT KAILA: Not Applicable Prescriptions: Ciprofloxacin HCl [Cipro] 500 mg PO BID #14 tablet predniSONE 20 mg PO WITHBREAKFAST #7 tab Referrals: Jose Leiva MD [Primary Care Provider] - Forms: ED Department Discharge Additional Instructions: Your vital signs, including your temperature, are stable here. Your COVID test is negative. Your chest x-ray and urinalysis do not show infection. Your blood tests are at baseline and do not show infection other than a protein marker called a c-reactive protein which is 3.9. This is 4x its usual level. The cause of the increase is unclear. As a precaution, take the antibiotic ciprofloxacin 500 mg 1 tab 2 times a day for 7 days. Also take the steroid prednisone 20 mg 1 tab daily for 7 days. If you are feeling worse over the weekend, you will need to go to the walk-in clinic or return to the Emergency Department. If you are feeling the same or better, see your doctor in 3 days to recheck your blood counts and CRP. Sepsis Event Note (ED) - Evaluation Sepsis Screening Result: No Definite Risk - Focused Exam Vital Signs: Vital Signs Temp Pulse Resp BP Pulse Ox 06/02/20 15:35 36.9 C 89 18 123/86 96 - My Orders Last 24 Hours: My Active Orders 06/02/20 15:51 Blood Culture x2 Reflex Set [OM.PC] Urgent 06/02/20 16:05 Sodium Chloride 0.9% [Saline Flush] 10 ml FLUSH ASDIRECTED PRN 06/02/20 16:12 CULTURE BLOOD [BC] Urgent 06/02/20 16:18 CULTURE BLOOD [BC] Urgent 06/02/20 18:41 Orthostatic Vital Signs [RC] ASDIRECTED 06/02/20 19:09 cefTRIAXone [Rocephin] 1 gm IVPUSH ONETIME ONE 06/02/20 19:10 methylPREDNISolone Sod Succ [Solu-MEDROL] 80 mg IVPUSH ONETIME ONE - Assessment/Plan Last 24 Hours: My Active Orders 06/02/20 15:51 Blood Culture x2 Reflex Set [OM.PC] Urgent 06/02/20 16:05 Sodium Chloride 0.9% [Saline Flush] 10 ml FLUSH ASDIRECTED PRN 06/02/20 16:12 CULTURE BLOOD [BC] Urgent 06/02/20 16:18 CULTURE BLOOD [BC] Urgent 06/02/20 18:41 Orthostatic Vital Signs [RC] ASDIRECTED 06/02/20 19:09 cefTRIAXone [Rocephin] 1 gm IVPUSH ONETIME ONE 06/02/20 19:10 methylPREDNISolone Sod Succ [Solu-MEDROL] 80 mg IVPUSH ONETIME ONE
[2020-06-02] MEDS ORDERED: cefTRIAXone 2 GM Vial IVPUSH ONE (19:09)
[2020-06-02] MEDS ORDERED: methylPREDNISolone Sodium Succinate 40 MG/1 ML SDV IVPUSH ONE (19:10)
[2020-06-02 20:10] VITALS: BP 153/65; PULSE 79
== END 2020-06-02 19:45 | disposition home or self-care (01) ==
LOC: FB.ED 15:27
DX: R50.9 Fever, unspecified (principal); R74.8 Abnormal levels of other serum enzymes; I10 Essential (primary) hypertension; E78.00 Pure hypercholesterolemia, unspecified; M19.90 Unspecified osteoarthritis, unspecified site; E11.9 Type 2 diabetes mellitus without complications; E66.9 Obesity, unspecified; Z68.41 Body mass index [BMI] 40.0-44.9, adult; Z95.5 Presence of coronary angioplasty implant and graft; Z20.828 Contact with and (suspected) exposure to other viral communicable diseases; Z88.0 Allergy status to penicillin; Z88.8 Allergy status to other drugs, medicaments and biological substances; Z79.82 Long term (current) use of aspirin; Z79.02 Long term (current) use of antithrombotics/antiplatelets; Z79.84 Long term (current) use of oral hypoglycemic drugs; Z79.899 Other long term (current) drug therapy
CPT/HCPCS: 36415; 80053; 81001; 83605; 85025; 86140; 87040; 96374; 96375; 99283; J0696; J1885; J2920; J7030; U0002; 99284

== ENCOUNTER 2025-01-21 14:08 | Emergency (ER) | payer MEDICARE, BC ==
[2025-01-21] MEDS: Sodium Chloride 0.9% 1,000 ML IV SCH (14:48)
[2025-01-21 14:58] LABS: BASOPHILS ABSOLUTE AUTO 0.1 x10-3/uL (0.0-0.1); BASOPHILS PERCENT AUTO 0.6 % (0.2-1.5); EOSINOPHILS ABSOLUTE AUTO 0.1 x10-3/uL (0.0-0.8); EOSINOPHILS PERCENT AUTO 1.1 % (0.6-8.1); HEMATOCRIT 22.7 % (34.2-48.2); HEMOGLOBIN 7.6 g/dL (11.4-15.5); LYMPHOCYTES ABSOLUTE AUTO 1.5 x10-3/uL (1.0-4.4); LYMPHOCYTES PERCENT AUTO 13.9 % (18.4-52.1); MEAN CORPUSCULAR HEMOGLOBIN 28.5 pg (23.9-33.9); MEAN CORPUSCULAR HGB CONC 33.4 g/dL (31.9-34.8); MEAN CORPUSCULAR VOLUME 85.6 fL (76.7-100.5); MEAN PLATELET VOLUME 6.7 fL (7.1-12.4); MONOCYTES ABSOLUTE AUTO 0.5 x10-3/uL (0.3-1.0); MONOCYTES PERCENT AUTO 4.6 % (4.4-15.7); NEUTROPHILS ABSOLUTE AUTO 8.3 x10-3/uL (1.5-6.3); NEUTROPHILS PERCENT AUTO 79.8 % (30.8-76.2); PLATELET COUNT,PLT 352 x10(3)uL (151-488); RED BLOOD CELL COUNT 2.65 x10(6)uL (3.60-5.20); RED CELL DISTRIBUTION WIDTH 14.6 % (12.3-16.5); WHITE BLOOD CELL COUNT,WBC 10.4 x10-3/uL (3.0-10.3)
[2025-01-21 15:27] LABS: A/G RATIO 0.5; ALANINE AMINOTRANSFERASE,ALT 35 U/L (12-36); ALKALINE PHOSPHATASE 86 IU/L (56-112); ASPARTATE AMNIOTRANSFERASE,AST 11 IU/L (5-25); BILIRUBIN TOTAL 0.3 mg/dL (0.1-1.3); BLOOD UREA NITROGEN,BUN 27 mg/dL (7-18); BUN/CREATININE RATIO 33.8 (9-20); CALCIUM 11.6 mg/dL (8.6-10.2); CARBON DIOXIDE,CO2 24 mmol/L (21-32); CREATININE 0.8 mg/dL (0.55-1.02); ESTIMATED GFR 79 mL/min (>60); GLUCOSE RANDOM 250 mg/dL (80-116); MAGNESIUM 1.7 mg/dL (1.8-2.5); PROTEIN TOTAL,TP 5.8 g/dL (6.0-8.0)
[2025-01-21 15:36] LABS: CHLORIDE,CL 102 mmol/L (100-110); POTASSIUM,K 4.2 mmol/L (3.5-5.3); SODIUM,NA 140 mmol/L (135-145)
[2025-01-21 16:27] LABS: BILIRUBIN,URINE NEGATIVE (NEGATIVE); GLUCOSE,URINE >1000 mg/dL (NORMAL); KETONES,URINE NEGATIVE (NEGATIVE); LEUKOCYTE ESTERASE,URINE NEGATIVE (NEGATIVE); NITRITE,URINE NEGATIVE (NEGATIVE); OCCULT BLOOD,URINE NEGATIVE (NEGATIVE); PROTEIN,URINE NEGATIVE (NEGATIVE); UROBILINOGEN,URINE NORMAL (NEGATIVE)
[2025-01-21 16:29] LABS: APPEARANCE,URINE CLEAR (CLEAR); COLOR,URINE YELLOW (YELLOW)
[2025-01-21] MEDS: Pantoprazole 40 MG Vial IVPUSH ONE (17:25)
[2025-01-21] MEDS: Pantoprazole 80 MG in Sodium Chloride 0.9% 100 ML IV SCH (17:41)
[2025-01-21] MEDS: Morphine 2 MG/ML SYRINGE IVPUSH ONE (18:29)
[2025-01-21 18:54] VITALS: BP 134/46; PULSE 92
== END 2025-01-21 18:55 | disposition other institution (70) ==
LOC: FB.ED 14:08
DX: K92.2 Gastrointestinal hemorrhage, unspecified (principal); I10 Essential (primary) hypertension; E78.00 Pure hypercholesterolemia, unspecified; E11.9 Type 2 diabetes mellitus without complications; Z95.5 Presence of coronary angioplasty implant and graft; Z88.0 Allergy status to penicillin; Z88.8 Allergy status to other drugs, medicaments and biological substances; Z79.82 Long term (current) use of aspirin; Z79.84 Long term (current) use of oral hypoglycemic drugs; Z79.02 Long term (current) use of antithrombotics/antiplatelets; Z79.899 Other long term (current) drug therapy
CPT/HCPCS: 36415; 36430; 80053; 81003; 82272; 83735; 85025; 86850; 86900; 86901; 86920; 86922; 96361; 96365; 96375; 99285; J2270; J2470; J7030; P9016